=== PATIENT | female | born 1995 | race Caucasian/White ===

== ENCOUNTER 2023-10-28 20:42 | Emergency (ER) | payer MEDICAID ==
[~2023-10-28] VITALS: Ht 160 cm; Wt 83.0 kg
[2023-10-28 20:55] VITALS: O2SAT 99
[2023-10-28 21:38] LABS: BASOPHILS % 0.6 % (0.0-2.0); EOSINOPHILS % 2.8 % (0.0-5.0); HEMATOCRIT. 33.1 % (36.0-48.0); HEMOGLOBIN. 10.5 g/dL (12.0-16.0); LYMPHOCYTES % 39.4 % (20.0-50.0); MEAN CORPUSCULAR HGB CONC 31.7 g/dL (31.0-37.0); MEAN CORPUSCULAR VOLUME 66.3 fL (81.0-99.0); MEAN PLATELET VOLUME 8.7 fl (7.4-10.4); MONOCYTES % 6.5 % (2.0-8.0); NEUTROPHILS % 50.7 % (40.0-76.0); PLATELET 257 x1000/uL (130-400); RED CELL DISTRIBUTION WIDTH 19.1 % (11.6-14.6); WHITE BLOOD COUNT 8.2 x1000/uL (4.5-11.0)
[2023-10-28 21:46] LABS: ALANINE AMINOTRANSFERASE 22 IU/L (10-49); ASPARTATE AMINOTRANSFERASE 62 IU/L (<34); CALCIUM 8.6 mg/dL (8.7-10.4); CARBON DIOXIDE 26 mEq/L (21-32); CHLORIDE 107 mEq/L (98-107); GLUCOSE 92 mg/dL (70-105); POTASSIUM 4.1 mEq/L (3.5-5.1); PROTEIN TOTAL 7.4 g/dL (6.0-8.3); SODIUM 138 mEq/L (136-145); UREA NITROGEN BLOOD 15 mg/dL (9-23)
[2023-10-28 21:47] LABS: ADD RBC MORPHOLOGY YES; DIFFERENTIAL COMMENT 1
[2023-10-28 22:07] LABS: ANISOCYTOSIS 1+; HYPOCHROMASIA 2+; MICROCYTOSIS 3+; PLATELET ESTIMATE NORMAL
[2023-10-29 04:36] VITALS: BP 107/70; PULSE 62; RESP 12; TEMP 98.7
[2023-10-29] MEDS ORDERED: ONDA4TAB50 MT (04:46)
[2023-10-29] MEDS ORDERED: PROT20 MT (04:46)
[2023-10-29] MEDS: MAGNESIUM/ALUMINUM HYDROXIDE/SIMETHICONE 30ML UDC PO NR (04:48)
[2023-10-29] MEDS: ONDANSETRON 4MG ODT PO NR (04:48)
== END 2023-10-29 05:36 | disposition home or self-care (01) ==
LOC: ER 20:48
DX: K21.9 Gastro-esophageal reflux disease without esophagitis (principal); R10.13 Epigastric pain
CPT/HCPCS: 99283; 80053; 81025; 83690; 85025; 36415; Q0162